=== PATIENT | female | born 1990 | race Hispanic/Latino ===

== ENCOUNTER 2017-03-21 11:40 | Emergency (ER) | payer OTHER ==
[2017-03-21 11:52] VITALS: BP 104/70
--- NOTE | 2017-03-21 12:32 | ED PDOC ---
Arrival/HPI - General Chief Complaint: Breast Problem Time Seen by Provider: 03/21/17 11:54 Historian: Patient - History of Present Illness Narrative History of Present Illness (Text): 03/21/17 12:33 A 26 year old female, whose past medical history includes and endometriosis, pumping breast milk, presents to the emergency department complaining of left breast pain radiating to armpit, headache and chills. Patient also reports a fever of 103.6 this morning and took Tylenol. Reports symptoms seemed flu-like. Notes sore and redness of nipples on bilateral breast and felt lumps on side of breast, noticed it this morning. Reports sharp pain this morning. Patient notes a rash, currently resolved, but denies any other complaints at this time. Symptom Onset: Sudden Symptom Course: Unchanged Activities at Onset: Rest Context: Home Past Medical History - Provider Review Nursing Documentation Reviewed: Yes - Psychiatric Hx Substance Use: No - Surgical History Hx Section: Yes Family/Social History - Physician Review Nursing Documentation Reviewed: Yes Family/Social History: No Known Family HX Smoking Status: Never Smoked Hx Alcohol Use: No Hx Substance Use: No Allergies/Home Meds Allergies/Adverse Reactions: Allergies No Known Allergies Allergy (Verified 03/21/17 11:52) Home Medications: Home Meds Medication Instructions Recorded Confirmed Ferrous Sulfate [Feosol] 325 mg PO DAILY 03/21/17 03/21/17 Vit Calc,Iron,Folic 1 tab PO DAILY 03/21/17 03/21/17 [ Vitamins] Review of Systems - Physician Review All systems were reviewed & negative as marked: Yes - Review of Systems Respiratory: absent: SOB Cardiovascular: absent: Chest Pain Physical Exam - Physical Exam Narrative Physical Exam (Text): 03/21/17 12:30 Constitutional: No acute distress. Head: Normocephalic. Atraumatic. Eyes: PERRL. ENT: Moist mucous membranes. Neck: Supple. Cardiovascular: Regular rate. Chest: b/l areola maceration, no active discharge, no palpable abscess or masses ; left breast blanching erythema Respiratory: Clear to auscultation bilaterally. GI: Soft. Nontender. Nondistended. Back: No CVA tenderness. Musculoskeletal: No tenderness or swelling of extremities. Skin: No rash. Neurologic: Alert, no focal deficit. Vital Signs Reviewed: Yes Vital Signs Temp Pulse Resp BP Pulse Ox 03/21/17 12:31 99.0 F 70 16 104/70 99 03/21/17 12:02 100.1 F H 127 H 18 104/70 96 03/21/17 11:48 100.1 F H 127 H 18 104/70 96 Blood Pressure: Normal Pulse: Tachycardic Respiratory Rate: Normal Appearance: Positive for: Well-Appearing, Non-Toxic, Comfortable Pain Distress: None Mental Status: Positive for: Alert and Oriented X 3 Medical Decision Making ED Course and Treatment: 03/21/17 12:29 Impression: Currently lactating female with frequent plugged ducts p/w L breast pain, erythema, fever and chills without palpable mass consistent with mastitis. Prescribed antibiotics, instructed f/u with OBGYN, she states she can go on Wednesday (2 days). Educated on further care, continue pumping, watch for worsening mass, tenderness, induration, fluctuance. Plan: -- Reassess and disposition Progress Notes: I have discussed the results and plan with the patient, who expresses understanding. Patient in agreement with plan to be discharged home with antibiotics. Patient is stable for discharge. Patient was instructed to follow up with physician or return if symptoms worsen or new concerning symptoms arise. - Scribe Statement The provider has reviewed the documentation as recorded by the Clint Taylor Provider Scribe Attestation: All medical record entries made by the Scribe were at my direction and personally dictated by me. I have reviewed the chart and agree that the record accurately reflects my personal performance of the history, physical exam, medical decision making, and the department course for this patient. I have also personally directed, reviewed, and agree with the discharge instructions and disposition. Disposition/Present on Arrival - Present on Arrival Any Indicators Present on Arrival: No History of DVT/PE: No History of Uncontrolled Diabetes: No Urinary Catheter: No History of Decub. Ulcer: No History Surgical Site Infection Following: None - Disposition Have Diagnosis and Disposition been Completed?: Yes Diagnosis: Mastitis Disposition: HOME/ ROUTINE Disposition Time: 12:30 Patient Plan: Discharge Condition: STABLE Discharge Instructions (ExitCare): Mastitis (ED) Prescriptions: Dicloxacillin [Dynapen] 500 mg PO Q6H #40 cap Forms: [employer] ([place])
[2017-03-21 12:41] VITALS: PULSE 70; RESP 16; TEMP 99; O2SAT 99
== END 2017-03-21 12:33 | disposition home or self-care (01) ==
LOC: MERGE 11:40 → ED 11:40
DX: N61.0 Mastitis without abscess (principal)